=== PATIENT | female | born 1935 | race Caucasian/White ===

== ENCOUNTER 2017-04-15 09:01 | Inpatient (IN) | payer MEDICARE, BC ==
[2017-04-15 09:10] LABS: POC GLUCOSE 109 mg/dL (70-99)
[2017-04-15 10:18] LABS: ADD MAN DIFF? NO
[2017-04-15 10:39] LABS: PROTHROMBIN TIME PATIENT 12.8 SEC (11.7-14.0)
[2017-04-15 10:43] LABS: ANION GAP 13 (6-14); BLOOD UREA NITROGEN 13 mg/dL (7-20); CARBON DIOXIDE 24 mmol/L (21-32); CHLORIDE 104 mmol/L (98-107); CREATININE 1.1 mg/dL (0.6-1.0); GFR 47.7; GLUCOSE 144 mg/dL (70-99); POTASSIUM 3.6 mmol/L (3.5-5.1); SODIUM 141 mmol/L (136-145)
[2017-04-15 10:44] LABS: BASO % 0 % (0-3); EOS % 0 % (0-3); HEMATOCRIT 42.3 % (36.0-47.0); HEMOGLOBIN 13.8 g/dL (12.0-15.5); LYMPH % 11 % (24-48); MEAN CORPUSCULAR HEMOGLOBIN 29 pg (25-35); MEAN CORPUSCULAR HGB CONC 33 g/dL (31-37); MEAN CORPUSCULAR VOLUME 88 fL (79-100); MONO # 0.5 x10^3/uL (0.0-1.1); MONO % 6 % (0-9); NEUT # 7.7 x10^3uL (1.8-7.7); NEUT % 83 % (31-73); PLATELET COUNT 194 x10^3/uL (140-400); RED BLOOD COUNT 4.83 x10^6/uL (3.50-5.40); RED CELL DISTRIBUTION WIDTH 13.6 % (11.5-14.5); WHITE BLOOD COUNT 9.2 x10^3/uL (4.0-11.0)
[2017-04-15 10:49] LABS: ALBUMIN 3.7 g/dL (3.4-5.0); ALK PHOS 83 U/L (46-116); ALT (SGPT) 27 U/L (14-59); AST (SGOT) 23 U/L (15-37); DIRECT BILIRUBIN 0.1 mg/dL (0.0-0.2); MAGNESIUM 1.9 mg/dL (1.8-2.4); TOTAL BILIRUBIN 0.5 mg/dL (0.2-1.0); TOTAL PROTEIN 7.7 g/dL (6.4-8.2)
[2017-04-15 10:53] LABS: TROPONINI < 0.017 ng/mL (0.000-0.055)
[2017-04-15 10:57] LABS: CKMB INDEX 1.6 % (0-4); CKMB MASS 1.5 ng/mL (0.0-3.6); CREATINE KINASE 92 U/L (26-192)
[2017-04-15 10:57] LABS: NT-PRO BNP 193 pg/mL (0-449); THYROID STIM HORMONE (TSH) 0.965 uIU/mL (0.358-3.74)
[2017-04-15] MEDS ORDERED: ONDANSETRON PF 4 MG/2 ML VIAL. IV ×2 (11:45→16:45)
[2017-04-15 12:17] LABS: BILIRUBIN,URINE NEGATIVE (NEG); CLARITY,URINE CLEAR; COLOR,URINE YELLOW; GLUCOSE,URINE NEGATIVE (NEG); NITRITE,URINE NEGATIVE (NEG); PH,URINE 6.5; PROTEIN,URINE NEGATIVE (NEG-TRACE); RBC,URINE 0 /HPF (0-2); UROBILINOGEN,URINE 0.2 mg/dL (0.2 mg/dL)
[2017-04-15 12:28] LABS: BACTERIA,URINE FEW /HPF (0-FEW)
[2017-04-15] MEDS: PHARMACY TO REVIEW MEDS MC (16:45)
[2017-04-15] MEDS ORDERED: LABETALOL 20 MG/4 ML DISP.SYRIN. IV (16:45)
[2017-04-15] MEDS ORDERED: ACETAMINOPHEN 650 MG SUPP.RECT. PR (16:45)
[2017-04-15] MEDS ORDERED: hydrALAZINE 20 MG/ML VIAL. IVP (16:45)
[2017-04-15] MEDS ORDERED: 0.9 % SODIUM CHLORIDE 10 ML DISP.SYRIN. IV (16:45)
[2017-04-15] MEDS: amLODIPine BESYLATE 10 MG TABLET PO (17:57)
[2017-04-15] MEDS: CALCIUM CARBONATE 500 MG TAB.CHEW PO ×2 (21:23→22:43)
[2017-04-15] MEDS: ATORVASTATIN CALCIUM 20 MG TABLET PO (21:23)
[2017-04-16 01:10] LABS: MRSA BY PCR Negative (Negative)
[2017-04-16 07:03] LABS: ANION GAP 12 (6-14); BLOOD UREA NITROGEN 14 mg/dL (7-20); CARBON DIOXIDE 24 mmol/L (21-32); CHLORIDE 107 mmol/L (98-107); CHOLESTEROL 181 mg/dL (0-200); CHOLESTEROL/HDL RATIO 3.4; CREATININE 0.9 mg/dL (0.6-1.0); GFR 60.1; GLUCOSE 101 mg/dL (70-99); HDLC 53 mg/dL (40-60); LDLC 111 mg/dL (0-100); NON-HDL CHOLESTEROL 128 mg/dL (0-129); POTASSIUM 4.2 mmol/L (3.5-5.1); SODIUM 143 mmol/L (136-145); TRIGLYCERIDES 86 mg/dL (0-150); VLDLC 17 mg/dL (0-40)
[2017-04-16 07:54] LABS: ADD MAN DIFF? NO
[2017-04-16 07:58] LABS: BASO % 1 % (0-3); EOS # 0.1 x10^3/uL (0.0-0.7); EOS % 1 % (0-3); HEMATOCRIT 40.6 % (36.0-47.0); HEMOGLOBIN 13.4 g/dL (12.0-15.5); LYMPH # 1.2 x10^3/uL (1.0-4.8); LYMPH % 17 % (24-48); MEAN CORPUSCULAR HEMOGLOBIN 29 pg (25-35); MEAN CORPUSCULAR HGB CONC 33 g/dL (31-37); MEAN CORPUSCULAR VOLUME 88 fL (79-100); MONO # 0.6 x10^3/uL (0.0-1.1); MONO % 10 % (0-9); NEUT # 4.8 x10^3uL (1.8-7.7); NEUT % 72 % (31-73); PLATELET COUNT 184 x10^3/uL (140-400); RED BLOOD COUNT 4.64 x10^6/uL (3.50-5.40); RED CELL DISTRIBUTION WIDTH 13.6 % (11.5-14.5); WHITE BLOOD COUNT 6.6 x10^3/uL (4.0-11.0)
[2017-04-16] MEDS: amLODIPine BESYLATE 10 MG TABLET PO (09:49)
[2017-04-16] MEDS: LOSARTAN POTASSIUM 50 MG TABLET. PO (09:49)
[2017-04-16] MEDS: CALCIUM CARBONATE 500 MG TAB.CHEW PO (09:50)
== END 2017-04-16 18:00 | disposition home or self-care (01) | DRG 64 ==
LOC: ER 09:01 → ED HOLD 12:00 → 1 WEST ICU 15:45
PROVIDERS: Internal Medicine
DX: I61.1 Nontraumatic intracerebral hemorrhage in hemisphere, cortical (principal); G93.6 Cerebral edema; E78.5 Hyperlipidemia, unspecified; I10 Essential (primary) hypertension; Z90.710 Acquired absence of both cervix and uterus; Z88.8 Allergy status to other drugs, medicaments and biological substances; Z90.10 Acquired absence of unspecified breast and nipple
CPT/HCPCS: 36415; 70450; 80048; 80061; 80076; 81001; 82553; 82962; 83735; 83880; 84443; 84484; 85025; 85610; 87086; 87641; 97110-GP; 97112-GP; 97162-GP; 97166-GO; 99291; 99291-25

== ENCOUNTER → 2017-04-23 | Outpatient (CLI) | payer MEDICARE, BC | END | disposition home or self-care (01) | LOC: CT 14:50 | DX: I62.00 Nontraumatic subdural hemorrhage, unspecified (principal); I67.2 Cerebral atherosclerosis | CPT/HCPCS: 70450 ==

== ENCOUNTER → 2017-05-04 | Outpatient (CLI) | payer MEDICARE, BC | END | disposition home or self-care (01) | LOC: MRI 12:50 | DX: I61.9 Nontraumatic intracerebral hemorrhage, unspecified (principal); R41.0 Disorientation, unspecified; Z86.73 Personal history of transient ischemic attack (TIA), and cerebral infarction without residual deficits | CPT/HCPCS: 70544 ==

== ENCOUNTER 2018-09-25 11:49 | Emergency (ER) | payer MEDICARE, BC ==
[~2018-09-25] VITALS: Ht 167.6 cm; Wt 64.9 kg
[~2018-09-25 11:49] MED LIST: ATOR20TA PO; ESOM40CA PO; LOSA-73 PO
[2018-09-25] MEDS ORDERED: ACETAMINOPHEN 500 MG TABLET PO ONE (12:15)
[2018-09-25] MEDS ORDERED: DIPHTH,PERTUSS(ACELL),TET TOX 0.5 ML DISP.SYRIN. VAX IM ONE (12:15)
[2018-09-25 13:01] VITALS: BP 126/58
--- NOTE | 2018-09-25 13:32 | RAD ---
EXAM: LEFT ELBOW 3 VIEWS. HISTORY: Left elbow pain after a fall. Laceration. COMPARISON: None. FINDINGS: No fractures are identified. Joint spaces and alignment are maintained. There is no joint effusion. IMPRESSION: 1. No fracture or joint effusion. Electronically signed by: Seema Roque MD (09/25/2018 1:29 PM) [facility]
[2018-09-25] MEDS ORDERED: LIDOCAINE 1% Multi-Dose 20 ML VIAL. ONE (13:41)
[2018-09-25] MEDS ORDERED: LIDOCAINE 1%/EPI 1:100,000 20 ML VIAL. INJ ONE (13:45)
--- NOTE | 2018-09-25 13:50 | RAD ---
EXAM: 1. CT HEAD WITHOUT CONTRAST. 2. CT CERVICAL SPINE WITHOUT CONTRAST. HISTORY: Trauma, fall. TECHNIQUE: Computed tomography of the head and cervical spine was performed without intravenous contrast. COMPARISON: 07/09/2017. FINDINGS: There is no intracranial hemorrhage. Encephalomalacia in the left parietal lobe is again noted. There is mild chronic microangiopathic white matter change elsewhere for patient age. Prominence of the lateral ventricles and hemispheric sulci indicates moderate atrophy. The visualized paranasal sinuses appear clear. The orbits are unremarkable. The temporal bones are unremarkable. The calvarium reveals no suspicious lesions. 2 mm anterolisthesis at C7-T1 is degenerative from facet osteoarthritis. There is mild osteoarthritis at C1-2. No fractures are identified. 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 There is no prevertebral soft tissue swelling. Osteopenia appears moderate. At C2-3, there is a small posterior disc bulge. There is no significant stenosis. At C3-4, there is a small posterior disc bulge. 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 Left neural foraminal stenosis is mild. At C4-5, there is a moderate posterior disc-osteophyte complex. Facet and uncovertebral osteoarthritis are mild to moderate bilaterally. Neural foraminal stenosis is mild on the left. At C5-6, there is a moderate posterior disc-osteophyte complex. Uncovertebral osteoarthritis is moderate bilaterally. Neural foraminal stenosis is moderate bilaterally. At C6-7, there is a small posterior disc-osteophyte complex. Uncovertebral osteoarthritis is moderate bilaterally. Neural foraminal stenosis is mild bilaterally. At C7-T1, left neural foraminal stenosis is moderate. IMPRESSION: 1. No acute intracranial findings. 2. Chronic left parietal encephalomalacia. 3. Moderate atrophy. 4. No cervical fracture or malalignment. 5. Moderate to severe degenerative changes as above result in only mild to moderate multilevel neural foraminal stenosis as detailed above. *One or more of the following individualized dose reduction techniques were utilized for this examination: 1. Automated exposure control. 2. Adjustment of the mA and/or kV according to patient size. 3. Use of iterative reconstruction technique. Electronically signed by: Seema Roque MD (09/25/2018 1:47 PM) [facility]
--- NOTE | 2018-09-25 14:30 | PHYS DOC ---
Past Medical History Past Medical History: High Cholesterol, Hypertension Past Surgical History: Hysterectomy, Other Additional Past Surgical Histo: Bilat.masectomy 1 was for CA,1 precaution. Alcohol Use: None Drug Use: None Adult General Chief Complaint Chief Complaint: MULTIPLE TRAUMA/FALL HPI HPI Patient is a 83 year old who presents to the ER for evaluation status post mechanical fall. Patient states that she missed a step causing her to fall backwards and hit her head. No LOC. Patient complains of left elbow pain only. Pain is constant, 1-2 out of 10, worse with movement, associated with local laceration. Patient unsure of last tdap. Denies any neck pain or vision changes. Review of Systems Review of Systems Constitutional: Denies fever or chills [] Eyes: Denies change in visual acuity, redness, or eye pain [] HENT: Denies nasal congestion or sore throat [] Respiratory: Denies cough or shortness of breath [] Cardiovascular: No additional information not addressed in HPI [] GI: Denies abdominal pain, nausea, vomiting, bloody stools or diarrhea [] : Denies dysuria or hematuria [] Musculoskeletal: Denies back pain or joint pain [] Integument: Denies rash or skin lesions [] Neurologic: Denies headache, focal weakness or sensory changes [] Endocrine: Denies polyuria or polydipsia [] All other systems were reviewed and found to be within normal limits, except as documented in this note. Current Medications Current Medications Current Medications Medications (Trade) Dose Ordered Sig/Essence Start Time Stop Time Status Last Admin Dose Admin Acetaminophen (Tylenol) 1,000 mg 1X ONCE 09/25/18 12:15 09/25/18 12:16 DC 09/25/18 12:41 1,000 MG Diphtheria/ Tetanus/Acell Pertussis (Boostrix) 0.5 ml ONCE ONCE 09/25/18 12:15 09/25/18 12:16 DC 09/25/18 12:43 0.5 ML Lidocaine HCl (Lidocaine 1% 20ml Vial) 20 ml STK-MED ONCE 09/25/18 13:41 09/25/18 13:42 DC Lidocaine/ Epinephrine (LIDOCAINE 1%-EPI 1:100,000 Multi-Dose) 20 ml 1X ONCE 09/25/18 13:45 09/25/18 13:46 DC 09/25/18 13:45 20 ML Allergies Allergies Allergies Coded Allergies Type Severity Reaction Last Updated Verified lorazepam Allergy Intermediate Hives 04/15/17 Yes Physical Exam Physical Exam Constitutional: Well developed, well nourished, no acute distress, appears stated age. HENT: Occipital laceration with small underlying hematoma Eyes: PERRLA, EOMI, Neck: Normal range of motion, no midline tenderness, Cardiovascular:Heart rate regular rhythm, no murmur [] Lungs & Thorax: Bilateral breath sounds clear to auscultation [] Abdomen: Bowel sounds normal, soft, no tenderness, no masses, no pulsatile masses. [] Skin: 3 cm laceration to left elbow, with small skin tear to left elbow, 1 cm laceration midline occiput Back: No tenderness, no CVA tenderness. [] Extremities: Left elbow with mild local swelling, no bony tenderness, intact range of motion of left elbow, bilateral pulses 2 out of 4, equal strength in all 4 extremities Neurologic: Alert and oriented X 3, CN 2 through 12 intact bilaterally, 5/5 strength in all 4 extremities , normal sensory function, cerebellar function intact with bilateral [id number] and [id number].. [] Psychologic: Affect normal, judgement normal, mood normal. [] Current Patient Data Vital Signs Vital Signs Date Time Temp Pulse Resp B/P (MAP) Pulse Ox O2 Delivery O2 Flow Rate FiO2 09/25/18 13:01 74 18 126/58 (80) 97 09/25/18 11:50 97.8 Room Air 97.8 EKG EKG [] Radiology/Procedures Radiology/Procedures Left elbow XR IMPRESSION: 1. No fracture or joint effusion. CT Head/neck IMPRESSION: 1. No acute intracranial findings. 2. Chronic left parietal encephalomalacia. 3. Moderate atrophy. 4. No cervical fracture or malalignment. 5. Moderate to severe degenerative changes as above result in only mild to moderate multilevel neural foraminal stenosis as detailed above. *One or more of the following individualized dose reduction techniques were utilized for this examination: 1. Automated exposure control. 2. Adjustment of the mA and/or kV according to patient size. 3. Use of iterative reconstruction technique. Electronically signed by: Seema Roque MD (09/25/2018 1:47 PM) [facility] [] Course & Med Decision Making Course & Med Decision Making Pertinent Labs and Imaging studies reviewed. (See chart for details) []1430: Imaging with no acute findings. Discussed concussion precautions. Discussed wound care. ER return precautions given. Patient verbalized understanding. All questions answered. There is some tension on the sutures placed in the left elbow. IS not to place patient in splints secondary to increased fall risk with immobilization of her left upper extremity.. Discharge Dragon Disclaimer Dragon Disclaimer This electronic medical record was generated, in whole or in part, using a voice recognition dictation system. Laceration/Wound Repair Laceration/Wound Repair : Wound Location: upper extremity (L elbow) Wound's Depth, Shape: superficial (hemostatic ) Wound Explored: clean Anesthesia: 1% Lidocaine Volume Anesthetic (ccs): 4 Suture Size/Type: 5:0 Number of Sutures: 6 Progress 2 temi to mid occiput laceration-cleaned, tolerated well. hemostatic Departure Departure Impression: Primary Impression: Closed head injury Additional Impressions: Scalp laceration Laceration of left elbow Disposition: 01 HOME, SELF-CARE Condition: IMPROVED Referrals: DC MONREAL MD (PCP) Patient Instructions: Concussion and Brain Injury, Laceration Care, Adult Additional Instructions: Thank you for coming to [facility]. Please read the attached handouts. Please follow-up with your primary care physician. Take Tylenol for pain. [place] on your scapholunate removed in 5 days. Discussed stitches in your left elbow will need to be removed in 7 days. Please try to limit full range of motion of your elbow until stitches are removed. Return to the ER if your symptoms worsen or you have any other concerns. Problem Qualifiers PEACE WATT DO Sep 25, 2018 14:29
== END 2018-09-25 14:33 | disposition home or self-care (01) ==
LOC: ER 11:49
DX: S51.012A Laceration without foreign body of left elbow, initial encounter (principal); S01.01XA Laceration without foreign body of scalp, initial encounter; G93.89 Other specified disorders of brain; G31.9 Degenerative disease of nervous system, unspecified; I10 Essential (primary) hypertension; E78.00 Pure hypercholesterolemia, unspecified; Z88.8 Allergy status to other drugs, medicaments and biological substances; W18.09XA Striking against other object with subsequent fall, initial encounter; Y93.89 Activity, other specified; Y92.89 Other specified places as the place of occurrence of the external cause; Y99.8 Other external cause status
CPT/HCPCS: 12002; 70450; 72125; 73080; 90471; 90715; 99284; J3490

== ENCOUNTER 2018-10-01 09:59 | Emergency (ER) | payer MEDICARE, BC ==
[~2018-10-01] VITALS: Ht 165.1 cm; Wt 64.9 kg
[2018-10-01 11:44] VITALS: BP 116/59
--- NOTE | 2018-10-01 12:02 | PHYS DOC ---
Past Medical History Past Medical History: High Cholesterol, Hypertension Past Surgical History: Hysterectomy, Other Additional Past Surgical Histo: Bilat.masectomy 1 was for CA,1 precaution. Alcohol Use: None Drug Use: None Adult General Chief Complaint Chief Complaint: SUTURE/STAPLE REMOVAL HPI HPI Patient is a 83 year old female who presents for suture removal and staple removal. She states the temi and sutures have been in for roughly 7 days. Denies any issues with the wound healing. Review of Systems Review of Systems Constitutional: Denies fever or chills [] Musculoskeletal: Denies back pain or joint pain [] Integument: Left elbow stitches, posterior scalp temi Neurologic: Denies headache, focal weakness or sensory changes [] All other systems were reviewed and found to be within normal limits, except as documented in this note. Allergies Allergies Allergies Coded Allergies Type Severity Reaction Last Updated Verified lorazepam Allergy Intermediate Hives 04/15/17 Yes Physical Exam Physical Exam Constitutional: Well developed, well nourished, no acute distress, non-toxic appearance. [] Skin: Well approximated laceration site noted on posterior scalp with 2 temi, temi were removed by me. Well approximated laceration site noted on the left elbow, sutures were removed by me. Back: No tenderness, no CVA tenderness. [] Extremities: No tenderness, no cyanosis, no clubbing, ROM intact, no edema. [] Neurologic: Alert and oriented X 3, normal motor function, normal sensory function, no focal deficits noted. [] Psychologic: Affect normal, judgement normal, mood normal. [] Current Patient Data Vital Signs Vital Signs Date Time Temp Pulse Resp B/P (MAP) Pulse Ox O2 Delivery O2 Flow Rate FiO2 10/01/18 11:44 97.7 71 16 116/59 (78) 98 97.7 EKG EKG [] Radiology/Procedures Radiology/Procedures [] Course & Med Decision Making Course & Med Decision Making Pertinent Labs and Imaging studies reviewed. (See chart for details) This is a 83-year-old female patient presenting to the ED today for temi and suture removal. [place] were removed from the scalp and sutures from the left elbow. Both lacerations with no signs of infection. Discharged to home. Wound care instructions and return precautions provided Dragon Disclaimer Dragon Disclaimer This electronic medical record was generated, in whole or in part, using a voice recognition dictation system. Departure Departure Impression: Primary Impression: Visit for suture removal Additional Impression: Removal of staple Disposition: HOME, SELF-CARE Condition: STABLE Referrals: DC MONREAL MD (PCP) Follow-up with your doctor in 1-2 weeks as needed Patient Instructions: Suture Removal Additional Instructions: We removed you sutures and temi. Please keep the areas clean and dry. Follow- up with your doctor in 1-2 weeks as needed. Problem Qualifiers EMERALD COOPER NOTE TAKER Oct 01, 2018 12:02
== END 2018-10-01 12:05 | disposition home or self-care (01) ==
LOC: ER 09:59
DX: S51.012D Laceration without foreign body of left elbow, subsequent encounter (principal); S01.01XD Laceration without foreign body of scalp, subsequent encounter; I10 Essential (primary) hypertension; E78.00 Pure hypercholesterolemia, unspecified; Z88.8 Allergy status to other drugs, medicaments and biological substances; X58.XXXD Exposure to other specified factors, subsequent encounter
CPT/HCPCS: 99281